=== PATIENT | male | born 1975 | race Caucasian/White ===

== ENCOUNTER 2023-03-11 14:24 | Emergency (ER) | payer BC ==
[~2023-03-11] VITALS: Ht 190.5 cm; Wt 104.3 kg
[2023-03-11 15:35] LABS: BASOPHILS ABSOLUTE AUTO 0.01 K/mm3 (0.00-0.23); BASOPHILS PERCENT AUTO 0 % (0-2); EOSINOPHILS PERCENT AUTO 0 % (0-6); IMMATURE GRAN ABSOLUTE AUTO 0.03 K/mm3 (0.00-0.10); IMMATURE GRAN PERCENT AUTO 1 % (0-1); LYMPHOCYTES ABSOLUTE AUTO 0.15 K/mm3 (0.84-5.20); LYMPHOCYTES PERCENT AUTO 2 % (21-46); MONOCYTES PERCENT AUTO 6 % (4-13); Mean Corpuscular HGB 30.6 pg (26.0-34.0); Mean Corpuscular HGB Conc 34.1 g/dL (31.5-36.5); Mean Corpuscular Volume 90 fL (80-100); Mean Platelet Volume 9.1 fL (9.1-12.4); NEUTROPHILS ABSOLUTE AUTO 5.89 K/mm3 (1.96-9.15); NEUTROPHILS PERCENT AUTO 91 % (41-73); Platelet Count 189 K/mm3 (150-400); RDW Coefficient Variation 13.7 % (11.7-14.2); RDW Standard Deviation 44.9 fL (35.1-46.3); White Blood Cell Count 6.48 K/mm3 (4.00-11.30)
[2023-03-11 15:57] LABS: Bilirubin, Total 1.3 mg/dL (0.1-1.0); Bun/Creatinine Ratio 13.5 (12.0-20.0); Calcium, Blood 9.3 mg/dL (8.5-10.1); Creatinine, Blood 0.96 mg/dL (0.60-1.20); Globulin, Blood 4.1 g/dL (2.2-4.0); Potassium, Blood 3.5 mmol/L (3.5-5.5); Total Protein, Blood 8.1 g/dL (6.4-8.2)
[2023-03-11 16:15] VITALS: BP 132/72
[2023-03-11] MEDS ORDERED: Ondansetron Odt8 MG MM (17:53)
== END 2023-03-11 18:21 | disposition home or self-care (01) ==
LOC: ER 14:24
PROVIDERS: Physician Assistant
DX: B34.9 Viral infection, unspecified (principal)
CPT/HCPCS: 80053; 82947; 85025; 93005; 93010; 96361; 96374; 96375; 99284-25; A9270; J1885; J2405; J7030

== ENCOUNTER 2023-10-31 16:08 | Emergency (ER) | payer SELFPAY ==
[~2023-10-31] VITALS: Ht 188 cm; Wt 106.6 kg
[~2023-10-31 16:08] MED LIST: Ondansetron Odt8 MG MM
[2023-10-31 16:15] VITALS: BP 170/105
[2023-10-31] MEDS ORDERED: Fluorescein Sod 1MG Opth Strips LEFTEYE ONE (16:15)
[2023-10-31] MEDS ORDERED: Tetracaine HCl/Pf 0.5% Opth Soln 4 ml LEFTEYE ONE (16:20)
[2023-10-31] MEDS ORDERED: Diphth,Pertuss(Acell),Tet Vac 0.5 ML VIAL IM ONE (16:55)
[2023-10-31] MEDS ORDERED: Ofloxacin 0.3% Opth Soln 5 ML LEFTEYE ONE (16:55)
[2023-10-31] MEDS ORDERED: Erythromycin 0.5% Opth Oint 1 gm LEFTEYE ONE (17:00)
[2023-10-31] MEDS ORDERED: OCUFLOX510 LEFTEYE (17:03)
[2023-10-31] MEDS ORDERED: ERYT1OIN LEFTEYE (17:03)
== END 2023-10-31 17:24 | disposition home or self-care (01) ==
LOC: ER 16:08
DX: S05.72XA Avulsion of left eye, initial encounter (principal); W22.8XXA Striking against or struck by other objects, initial encounter
CPT/HCPCS: 90715; A9270